=== PATIENT | male | born 1985 | race Asian ===

== ENCOUNTER 2022-01-27 23:24 | Emergency (ER) | payer SELFPAY ==
[~2022-01-27] VITALS: Ht 185.5 cm; Wt 86.1 kg
[2022-01-28 02:30] VITALS: BP 144/102
[2022-01-28 02:40] LABS: ALBUMIN 4.5 GM/DL (3.2-4.5); BASOPHILS % (AUTO) 0 % (0-10); BILIRUBIN,TOTAL 0.4 MG/DL (0.1-1.0); CALCIUM 9.3 MG/DL (8.5-10.1); CREATININE SERUM 1.02 MG/DL (0.60-1.30); EOSINOPHILS # (AUTO) 0.1 10^3/uL (0.0-0.3); EOSINOPHILS % (AUTO) 1 % (0-10); HEMATOCRIT 45 % (40-54); HEMOGLOBIN 14.6 g/dL (13.3-17.7); LYMPHOCYTES # (AUTO) 1.2 10^3/uL (1.0-4.0); LYMPHOCYTES % (AUTO) 12 % (12-44); MEAN CORPUSCULAR HEMOGLOBIN 29 pg (25-34); MEAN CORPUSCULAR HGB CONC 33 g/dL (32-36); MEAN CORPUSCULAR VOLUME 90 fL (80-99); MEAN PLATELET VOLUME 9.7 fL (9.0-12.2); MONOCYTES # (AUTO) 0.4 10^3/uL (0.0-1.0); MONOCYTES % (AUTO) 4 % (0-12); NEUTROPHILS # (AUTO) 8.2 10^3/uL (1.8-7.8); NEUTROPHILS % (AUTO) 83 % (42-75); PLATELET COUNT 224 10^3/uL (130-400); POTASSIUM 3.3 MMOL/L (3.6-5.0); TOTAL PROTEIN 7.9 GM/DL (6.4-8.2); TSH (THYROID ANALYZER) 0.58 UIU/ML (0.35-4.94); WHITE BLOOD COUNT 9.9 10^3/uL (4.3-11.0)
[2022-01-28 02:41] LABS: CLARITY,URINE CLEAR; COLOR,URINE YELLOW
[2022-01-28 02:42] LABS: AMPHETAMINE SCREEN, URINE NEGATIVE (NEGATIVE); BENZODIAZEPINES SCREEN URINE NEGATIVE (NEGATIVE); BILIRUBIN,URINE NEGATIVE (NEGATIVE); COCAINE SCREEN URINE NEGATIVE (NEGATIVE); GLUCOSE, URINE (UA) NEGATIVE (NEGATIVE); KETONES,URINE TRACE (NEGATIVE); LEUKOCYTE ESTERASE ,URINE NEGATIVE (NEGATIVE); NITRITE,URINE NEGATIVE (NEGATIVE); PROTEIN,URINE NEGATIVE (NEGATIVE); SQUAMOUS EPITHELIAL CELL,UR RARE /HPF
[2022-01-28 02:43] LABS: BARBITURATE SCREEN URINE NEGATIVE (NEGATIVE); CANNABINOID SCREEN, URINE POSITIVE (NEGATIVE); METHADONE STAT NEGATIVE (NEGATIVE); METHAMPHETAMINE SCREEN URINE S NEGATIVE (NEGATIVE); OPIATE SCREEN URINE NEGATIVE (NEGATIVE); OXYCODONE STAT NEGATIVE (NEGATIVE); PROPOXYPHENE STAT NEGATIVE (NEGATIVE); TRICYCLIC ANTIDEPRESSANTS SCRE NEGATIVE (NEGATIVE)
--- NOTE | 2022-01-28 04:11 | ED General ---
General Chief Complaint: Psych/Social Disorder Stated Complaint: ANXIETY Nursing Triage Note: PT AMBULATORY TO ROOM FROM TRIAGE AFTER BEING BROUGHT BY [facility]. PT STATES HE GOT OVERWHELMING ANXIETY "OUT OF NOWHERE" STARTING AT 2100. PT STATES HE HAS NEVER HAD THIS PROBLEM BEFORE Source of Information: Patient History of Present Illness Date Seen by Provider: Jan 27, 2022 Time Seen by Provider: 23:50 Initial Comments PT ARRIVES VIA EMS , WALKS INTO ER ON HIS OWN, TALKING ON CELL PHONE PT CALLED EMS FOR C/O "OVERWHELMING ANXIETY THAT CAME OUT OF NOWHERE" PT HAS BEEN TO THE [facility], HAD "A FEW CROWN AND SODAS AND A FEW BEERS", AND HE STARTED GETTING ANXIOUS AT SOME POINT, THEN ATE BURGER AND FRIES, THEN BECAME NAUSEATED AND VOMITED AND THEN GOT SEVERELY ANXIOUS PT DENIES ANY HISTORY OF SIMILAR PT STATES THAT HE HAS HISTORY OF VERY HEAVY/DAILY DRINKING "UNTIL I PASSED OUT" EVERY DAY. STATES HE HAS BEEN "TRYING TO CUT BACK LATELY", AND STATES THAT HIS LAST ALCOHOL INTAKE WAS ON Tuesday01/24/22 PT STATES THAT HE "OCCASIONALLY" USES MARIJUANA, BUT DENIES ANY OTHER DRUG USE NO CHEST PAIN NO SHORTNESS OF BREATH NO PARESTHESIAS OR MOTOR DEFICITS NO PALPITATIONS NO DIZZINESS OR SYNCOPE. DENIES ANY PROBLEMS AT [employer] OR LOSING MONEY OR ANY PROBLEMS OF ANY KIND. PCP: NONE--STATES HE HAS NOT BEEN TO A DR IN 8 YEARS PT STATES HE IS HERE "ON BUSINESS" FROM [place], [place]--IS VERY [employer]AG[employer] ABOUT HIS WORK AND WILL NOT GIVE ANY DETAILS OTHER THAN HE IS "HERE ON BUSINESS" Allergies and Home Medications Patient Home Medication List Home Medication List Reviewed: Yes Review of Systems Review of Systems Constitutional: no symptoms reported EENTM: no symptoms reported Respiratory: no symptoms reported Cardiovascular: no symptoms reported Gastrointestinal: see HPI Genitourinary: no symptoms reported Musculoskeletal: no symptoms reported Skin: no symptoms reported Psychiatric/Neurological: See HPI, Anxiety Hematologic/Lymphatic: No Symptoms Reported Immunological/Allergic: no symptoms reported Past Yk[place]aho-[id number]-Gkiqqv Hx Patient Social History Tobacco Use?: No Substance use?: Yes Substance type: Marijuana Substance frequency: Couple times a week Alcohol Use?: Yes Alcohol type: Beer, Hard Liquor Alcohol Frequency: Daily Immunizations Up To Date Influenza Vaccine Up-to-Date: No; Not Current Past Medical History Surgeries: No Respiratory: No Cardiac: No Neurological: No Genitourinary: No Gastrointestinal: No Musculoskeletal: No Endocrine: No HEENT: No Cancer: No Psychosocial: No Integumentary: No Blood Disorders: No Physical Exam Vital Signs Vital Signs - First Documented 01/27/22 23:34 Temp 36.4 Pulse 133 Resp 25 B/P (MAP) 164/103 (123) Pulse Ox 97 Capillary Refill : Height, Weight, BMI Height: '" Weight: lbs. oz. kg; 25.00 BMI Method: General Appearance: No Apparent Distress, WD/WN, Anxious, Other (PT TALKING ON PHONE/ OR ON SPEAKER PHONE THROUGHOUT THE ENTIRE ER STAY) HEENT: Normal ENT Inspection Neck: Normal Inspection Respiratory: Normal Breath Sounds, No Accessory Muscle Use, No Respiratory Distress Cardiovascular: No Edema, No JVD, No Murmur, Normal Peripheral Pulses, Tachycardia Gastrointestinal: Non Tender, Soft Extremity: Normal Inspection Neurologic/Psychiatric: Alert, Oriented x3, No Motor/Sensory Deficits, education faculty member II- XII Norm as Tested, Other (ANXIOUS) Skin: Normal Color (PT IS ), Warm/Dry Progress/Results/Core Measures Suspected Sepsis SIRS Temperature: Pulse: 121 Respiratory Rate: 18 Laboratory Tests 01/27/22 23:39: White Blood Count 9.9 Blood Pressure 144 /102 Mean: 116 Laboratory Tests 01/27/22 23:39: Creatinine 1.02, Platelet Count 224, Total Bilirubin 0.4 Results/Orders Lab Results Laboratory Tests Test 01/27/22 23:39 01/27/22 23:47 Range/Units White Blood Count 9.9 4.3-11.0 10^3/uL Red Blood Count 4.97 4.30-5.52 10^6/uL Hemoglobin 14.6 13.3-17.7 g/dL Hematocrit 45 40-54 % Mean Corpuscular Volume 90 80-99 fL Mean Corpuscular Hemoglobin 29 25-34 pg Mean Corpuscular Hemoglobin Concent 33 32-36 g/dL Red Cell Distribution Width 12.1 10.0-14.5 % Platelet Count 224 130-400 10^3/uL Mean Platelet Volume 9.7 9.0-12.2 fL Immature Granulocyte % (Auto) 0 % Neutrophils (%) (Auto) 83 H 42-75 % Lymphocytes (%) (Auto) 12 12-44 % Monocytes (%) (Auto) 4 0-12 % Eosinophils (%) (Auto) 1 0-10 % Basophils (%) (Auto) 0 0-10 % Neutrophils # (Auto) 8.2 H 1.8-7.8 10^3/uL Lymphocytes # (Auto) 1.2 1.0-4.0 10^3/uL Monocytes # (Auto) 0.4 0.0-1.0 10^3/uL Eosinophils # (Auto) 0.1 0.0-0.3 10^3/uL Basophils # (Auto) 0.0 0.0-0.1 10^3/uL Immature Granulocyte # (Auto) 0.0 0.0-0.1 10^3/uL Sodium Level 136 135-145 MMOL/L Potassium Level 3.3 L 3.6-5.0 MMOL/L Chloride Level 99 98-107 MMOL/L Carbon Dioxide Level 20 L 21-32 MMOL/L Anion Gap 17 H 5-14 MMOL/L Blood Urea Nitrogen 13 7-18 MG/DL Creatinine 1.02 0.60-1.30 MG/DL Estimat Glomerular Filtration Rate 98 BUN/Creatinine Ratio 13 Glucose Level 155 H 70-105 MG/DL Calcium Level 9.3 8.5-10.1 MG/DL Corrected Calcium 8.9 8.5-10.1 MG/DL Total Bilirubin 0.4 0.1-1.0 MG/DL Aspartate Amino Transf (AST/SGOT) 24 5-34 U/L Alanine Aminotransferase (ALT/SGPT) 33 0-55 U/L Alkaline Phosphatase 62 40-136 U/L Total Protein 7.9 6.4-8.2 GM/DL Albumin 4.5 3.2-4.5 GM/DL TSH [place] Testing 0.58 0.35-4.94 UIU/ML Serum Alcohol 31 H <10 MG/DL Urine Color YELLOW Urine Clarity CLEAR Urine pH 6.0 5-9 Urine Specific [place] >=1.030 1.016-1.022 Urine Protein NEGATIVE NEGATIVE Urine Glucose (UA) NEGATIVE NEGATIVE Urine Ketones TRACE H NEGATIVE Urine Nitrite NEGATIVE NEGATIVE Urine Bilirubin NEGATIVE NEGATIVE Urine Urobilinogen 0.2 < = 1.0 MG/DL Urine Leukocyte Esterase NEGATIVE NEGATIVE Urine RBC (Auto) NEGATIVE NEGATIVE Urine RBC NONE /HPF Urine WBC NONE /HPF Urine Squamous Epithelial Cells RARE /HPF Urine Crystals NONE /LPF Urine Bacteria NONE /HPF Urine Casts NONE /LPF Urine Mucus SMALL H /LPF Urine Culture Indicated NO Urine Opiates Screen NEGATIVE NEGATIVE Urine Oxycodone Screen NEGATIVE NEGATIVE Urine Methadone Screen NEGATIVE NEGATIVE Urine Propoxyphene Screen NEGATIVE NEGATIVE Urine Barbiturates Screen NEGATIVE NEGATIVE Ur Tricyclic Antidepressants Screen NEGATIVE NEGATIVE Urine Phencyclidine Screen NEGATIVE NEGATIVE Urine Amphetamines Screen NEGATIVE NEGATIVE Urine Methamphetamines Screen NEGATIVE NEGATIVE Urine Benzodiazepines Screen NEGATIVE NEGATIVE Urine Cocaine Screen NEGATIVE NEGATIVE Urine Cannabinoids Screen POSITIVE H NEGATIVE My Orders Orders - KIMANI RICHARDS DO Cbc With Automated Diff (01/27/22 23:39) Alcohol (01/27/22 23:39) Comprehensive Metabolic Panel (01/27/22 23:39) Thyroid Analyzer (01/27/22 23:39) Drug Screen Stat (Urine) (01/27/22 23:47) Urinalysis (01/27/22 23:47) Vital Signs/I&O 01/27/22 01/28/22 23:34 02:30 Temp 36.4 Pulse 133 121 Resp 25 18 B/P (MAP) 164/103 (123) 144/102 Pulse Ox 97 94 Capillary Refill : Blood Pressure Mean: 116 Progress Note : Progress Note UNEVENTFUL ER STAY PT HAS CALLED ANOTHER MALE TO DRIVE HIM HOME, AND HE ARRIVES LATER AND IS HERE IN ER WITH PT. ECG Initial ECG Impression Date: Jan 27, 2022 Initial ECG Impression Time: 23:59 Initial ECG Rate: 127 Initial ECG Rhythm: S.Tach Departure Impression Primary Impression: Anxiety Disposition: 01 HOME, SELF-CARE Condition: Stable Departure-Patient Inst. Decision time for Depature: 02:30 Referrals: NO,LOCAL PHYSICIAN (PCP) Primary Care Physician Patient Instructions: ALCOHOL AND SUBSTANCE ABUSE, Anxiety, Adult (DC) Add. Discharge Instructions: NO ALCOHOL NO DRUGS All discharge instructions reviewed with patient and/or family. Voiced understanding. KIMANI RICHARDS DO Jan 28, 2022 04:11
== END 2022-01-28 02:30 | disposition home or self-care (01) ==
LOC: ER 23:24
DX: F41.9 Anxiety disorder, unspecified (principal)
CPT/HCPCS: 80053; 80306; 81000; 84443; 85025; 93005; 99284; G0480; 36415; 80320